=== PATIENT | male | born 1965 | race Caucasian/White ===

== ENCOUNTER 2016-09-01 18:51 | Emergency (ER) | payer OTHER ==
[2016-09-01 19:22] VITALS: BP 146/88; PULSE 95; RESP 20; O2SAT 93
--- NOTE | 2016-09-01 20:38 | UCPHY ---
H & P Time Seen by Provider: 09/01/16 20:20 Patient Type: New HPI/ROS: CHIEF COMPLAINT: hives HISTORY OF PRESENT ILLNESS: Patient is a 51-year-old male who presents emergency department with development of hives since last night. The patient cannot recall any new products or exposures. He states his rash is fairly diffuse. However, does not involve his airway mouth. He has no dysuria or frequency. No shortness of breath or cough. No nausea or vomiting. No previous episodes of hives. Patient states he otherwise feels well. REVIEW OF SYSTEMS: My complete review of systems is negative except as mentioned in the HPI. Past Medical/Surgical History: Negative Social history: The patient does not smoke Smoking Status: Never smoked Physical Exam: Vitals noted GENERAL: Well-appearing, in no acute distress, alert. HEENT: Eyes normal to inspection, normal pharynx, no signs of dehydration. NECK: No thyromegaly, no lymphadenopathy, supple. RESPIRATORY: Clear to auscultation bilaterally, no rales, rhonchi or wheezing. CVS: Regular rate and rhythm, no rubs, murmurs, or gallops. ABDOMEN: Soft, nontender, nondistended, no organomegaly. BACK: Normal to inspection, no CVA tenderness. SKIN: Normal color, warm, dry. No pallor. Diffuse hives. No petechiae. EXTREMITIES: No pedal edema, no joint swelling. NEURO/PSYCH: Alert and oriented x3, normal mood and affect, normal motor sensory exam. Constitutional: Initial Vital Signs Heart Rate 95 09/01/16 19:19 Respiratory Rate 20 09/01/16 19:19 Blood Pressure 146/88 H 09/01/16 19:19 O2 Sat (%) 93 09/01/16 19:19 O2 Delivery Mode Room Air Allergies/Adverse Reactions: No Known Allergies Allergy (Unverified 09/01/16 19:19) Home Medications: Medication Instructions Recorded Famotidine [Pepcid 20 MG (*)] 20 mg PO BID #10 tab 09/01/16 predniSONE 40 mg PO DAILY 4 Days 09/01/16 Medical Decision Making ED Course/Re-evaluation: At urgent care discussed possible etiologies with the patient. I answered all his questions. He was given prednisone 60 mg orally and Pepcid 20 mg orally. He recently took Benadryl. He will continue to take Benadryl every 4-6 hours. He will take the prednisone and Pepcid as directed. He will follow up his primary care physician tomorrow. He is given warnings prior to leaving. He will return with worsening symptoms. Differential Diagnosis: My differential includes but is not limited to hives, allergic reaction, anaphylaxis, medication reaction, exposure, viral illness, C1 esterase deficiency Departure - Departure Disposition: Home, Routine, Self-Care Clinical Impression: Hives Condition: Good Instructions: Urticaria (ED) Additional Instructions: Return with increasing rash, shortness of breath, throat swelling, mouth swelling or any other concerns. Referrals: Ron Patterson MD [Primary Care Provider] - 1-2 days without fail Prescriptions: Famotidine [Pepcid 20 MG (*)] 20 mg PO BID #10 tab predniSONE 40 mg PO DAILY 4 Days - PQRS PQRS Measurement: My PQRS negative my PQRS negative my PQRS negative my PQRS negative 134: Depression screening and followup, PRIME MD-PHQ2 (12 years and older) Over the last 2 weeks, how often have you been bothered by any of the following problems? 1. Feeling down, depressed, or hopeless? 2. Little interest or pleasure in doing things? Patient answered no to both 1 and 2 130: Documentation of medications. Reviewed all patient medications, doses, route and frequency. 226: Do you smoke? No.
[2016-09-01] MEDS ORDERED: FAMOTIDINE 20 MG TAB PO ONE (20:39)
[2016-09-01] MEDS ORDERED: predniSONE 20 MG TAB PO ONE (20:39)
== END 2016-09-01 21:07 | disposition home or self-care (01) ==
LOC: CED 18:51
DX: L50.9 Urticaria, unspecified (principal)
CPT/HCPCS: 99203-PO; G0463-PO

== ENCOUNTER → 2017-02-02 | Outpatient (CLI) | payer OTHER | LOC: CIMAGING 11:50 | PROVIDERS: ATTEND Family Medicine | DX: M54.12 Radiculopathy, cervical region (principal); M50.322 Other cervical disc degeneration at C5-C6 level | CPT/HCPCS: 72050-PO ==

== ENCOUNTER → 2017-03-07 | Outpatient (CLI) | payer OTHER | LOC: FIMAGING 12:16 | PROVIDERS: ATTEND Family Medicine | DX: M54.12 Radiculopathy, cervical region (principal); M50.30 Other cervical disc degeneration, unspecified cervical region; M50.222 Other cervical disc displacement at C5-C6 level ==